=== PATIENT | female | born 2005 | race Two or more races ===

== ENCOUNTER 2023-07-07 09:09 | Emergency (ER) | payer OTHER ==
[2023-07-07 09:15] VITALS: BP 112/65; PULSE 84; RESP 16; TEMP 97.8; BMI 27.4
== END 2023-07-07 10:43 | disposition home or self-care (01) ==
LOC: FER 09:09
DX: R07.89 Other chest pain (principal)
CPT/HCPCS: 71046-TC-FY; 81025; 93005; 99285-25